=== PATIENT | female | born 1945 | race Caucasian/White ===

== ENCOUNTER 2017-04-28 21:27 | Emergency (ER) | payer MEDICARE ==
[2017-04-28 21:58] VITALS: O2SAT 100
--- NOTE | 2017-04-28 22:00 | ED.PDOC ---
History of Present Illness - General Chief Complaint: Headache Stated Complaint: headache,nausea,poor appetite,weakness,fever Time Seen by Provider: 04/28/17 21:51 Source: patient Exam Limitations: no limitations - History of Present Illness Initial Comments: Sera Osman 71 y/o female stated that she had been having non productive cough and flu like symptoms for the last one week with nasal congestion today does not have appetite and with dull frontal headache.Multiple ill contacts.No vomiting or diarrhea. Timing/Duration: other - see hpi Severity: moderate Improving Factors: nothing Worsening Factors: nothing Associated Symptoms: loss of appetite, other - seehpi Allergies/Adverse Reactions: Allergies Codeine Allergy (Verified 04/28/17 21:48) Hydrocodone Allergy (Verified 04/28/17 21:48) Penicillins Allergy (Verified 04/28/17 21:48) Sulfa Antibiotics Allergy (Verified 04/28/17 21:48) mycins Allergy (Uncoded 04/28/17 21:48) Home Medications: Ambulatory Orders Amitriptyline HCl [Elavil] 25 mg PO BEDTIME 04/28/17 Levothyroxine Sodium 50 mcg PO DAILY 04/28/17 Review of Systems - Review of Systems Constitutional: States: no symptoms reported EENTM: States: see HPI, nose congestion Respiratory: States: see HPI, cough Gastrointestinal/Abdominal: States: see HPI, nausea Genitourinary: States: no symptoms reported Musculoskeletal: States: no symptoms reported Skin: States: no symptoms reported Neurological: States: no symptoms reported Past Medical History (General) - Patient Medical History Hx Other PMH: Yes - hypothyroidism and sciatica Surgical History: other - hysterectomy - Social History Hx Physical Abuse: No Hx Emotional Abuse: No Hx Suspected Abuse: No - Activities of Daily Living Grooming Ability: Independent Eating (Feeding) Ability: Independent Toileting Ability: Independent - Female History Patient is a Female of Child Bearing Age (10 -59 yrs old): No Family Medical History - Family History Mother Family History: No Known Physical Exam - Physical Exam General Appearance: Alert, Comfortable, No apparent distress Eye Exam: bilateral normal Ears, Nose, Throat: hearing grossly normal - with hearing aids, normal ENT inspection, normal pharynx, nasal congestion Neck: full range of motion, supple Respiratory: lungs clear, normal breath sounds, no respiratory distress Cardiovascular/Chest: normal peripheral pulses, regular rate, rhythm, no murmur Peripheral Pulses: radial,right: 2+, radial,left: 2+ Gastrointestinal/Abdominal: normal bowel sounds, non tender, soft, no organomegaly Back Exam: no CVA tenderness, no vertebral tenderness Neurologic: alert, normal mood/affect, oriented x 3 Progress - Progress Progress: 04/28/17 22:25 Last Vital Signs Temp 97.8 F 04/28/17 21:35 Pulse 75 04/28/17 21:35 Resp 20 04/28/17 21:35 BP 147/94 04/28/17 21:35 Pulse Ox 100 04/28/17 21:35 Departure - Departure Clinical Impression: Flu-like symptoms Time of Disposition: 23:36 Disposition: Discharge to Home or Self Care Condition: Fair Departure Forms: ED Discharge - Pt. Copy, Patient Portal Self Enrollment Instructions: DI for Headache Referrals: SAUD WALTERS [Primary Care Provider] - 1-2 Weeks Home Medications: Ambulatory Orders Amitriptyline HCl [Elavil] 25 mg PO BEDTIME 04/28/17 Levothyroxine Sodium 50 mcg PO DAILY 04/28/17 Additional Instructions: RETURN TO EMERGENCY ROOM NEEDED;Tylenol 500mg every 6 hours as needed for pain;Need to drink extra fluids
[2017-04-28] MEDS ORDERED: ONDANSETRON ODT 8 MG TAB SL ONE (22:16)
--- NOTE | 2017-04-28 23:23 | RAD ---
Examination: XR CHEST 1 VIEW dated 04/28/2017 10:17 PM BILLING [employer]LE[employer] SPECIALIST History: cough Comparison: None Technique: Frontal view of the chest Findings: Mild linear atelectasis left lung base. Lungs otherwise clear. No pneumothorax or pleural effusion. The cardiomediastinal silhouette is within normal limits. Impression: Mild linear atelectasis of the left lung base. No acute findings. Electronically signed by: Bayron Pimentel MD 04/28/2017 11:21 PM [employer]ILLING [employer]LECTIONS SPECIALIST
[2017-04-28 23:53] VITALS: BP 132/87; TEMP 96.8
== END 2017-04-28 23:45 | disposition home or self-care (01) ==
LOC: ER 21:27
DX: R51 Headache (principal); R05 Cough; E03.9 Hypothyroidism, unspecified

== ENCOUNTER 2017-05-15 14:41 | Emergency (ER) | payer MEDICARE, OTHER ==
[2017-05-15 14:58] VITALS: TEMP 98.1
--- NOTE | 2017-05-15 15:08 | ED.PDOC ---
History of Present Illness - General Chief Complaint: Respiratory Problem Stated Complaint: cough Time Seen by Provider: 05/15/17 14:43 Source: patient Exam Limitations: no limitations - History of Present Illness Initial Comments: the patient is a 71-year-old female presenting to the emergency room secondary to cough with some congestion and hoarseness that has lasted for more than a month. The patient has been seen previously and diagnosed with the flu several weeks ago. Additionally she was seen by her primary care doctor last week who did a chest x-ray and did not find any definite pneumonia however place the patient on Keflex. The patient does have multiple drug allergies. The patient did recently move to a new house. She is not any fevers. No real sore throat. She has had some mild sinus pressure. She has had a runny nose. Timing/Duration: unsure Severity: mild Improving Factors: nothing Worsening Factors: nothing Associated Symptoms: chest pain - With cough, cough, loss of appetite, malaise Allergies/Adverse Reactions: Allergies Codeine Allergy (Verified 05/15/17 14:58) Hydrocodone Allergy (Verified 05/15/17 14:58) Penicillins Allergy (Verified 05/15/17 14:58) Sulfa Antibiotics Allergy (Verified 05/15/17 14:58) mycins Allergy (Uncoded 05/15/17 14:58) Home Medications: Ambulatory Orders Amitriptyline HCl [Elavil] 25 mg PO BEDTIME 04/28/17 Levothyroxine Sodium 50 mcg PO DAILY 04/28/17 predniSONE [Prednisone] 20 mg PO DAILY #5 tab 05/15/17 Review of Systems - Review of Systems Constitutional: States: malaise EENTM: States: nose congestion Respiratory: States: cough Cardiology: States: no symptoms reported Gastrointestinal/Abdominal: States: no symptoms reported Genitourinary: States: no symptoms reported Musculoskeletal: States: no symptoms reported Skin: States: no symptoms reported Neurological: States: no symptoms reported Endocrine: States: no symptoms reported All other Systems: No Change from Baseline Past Medical History (General) - Patient Medical History Hx Seizures: No Hx Stroke: No Hx Dementia: No Hx Asthma: No Hx of COPD: No Hx Cardiac Disorders: No Hx Congestive Heart Failure: No Hx Pacemaker: No Hx Hypertension: Yes Hx Thyroid Disease: Yes Hx Diabetes: No Hx Gastroesophageal Reflux: No Hx Renal Disease: No Hx Cancer: No Hx of HIV: No Hx Hepatitis C: No Hx MRSA: No Surgical History: Hysterectomy, other - Vaccination History Hx Tetanus, Diphtheria Vaccination: Yes Hx Influenza Vaccination: No Hx Pneumococcal Vaccination: No - Social History Hx Tobacco Use: No Hx Alcohol Use: No Hx Substance Use: No Hx Substance Use Treatment: No Hx Depression: No Hx Physical Abuse: No Hx Emotional Abuse: No Hx Suspected Abuse: No - Female History Patient is a Female of Child Bearing Age (10 -59 yrs old): No Family Medical History - Family History Mother Family History: No Known Physical Exam - Physical Exam General Appearance: Alert, Comfortable, No apparent distress Eye Exam: bilateral normal Ears, Nose, Throat: hearing grossly normal, nasal congestion - blue and boggy membranes Neck: full range of motion, supple Respiratory: lungs clear, normal breath sounds, no respiratory distress, no accessory muscle use - she is hoarse Cardiovascular/Chest: normal peripheral pulses, regular rate, rhythm, no edema Peripheral Pulses: radial,right: 2+, radial,left: 2+ Gastrointestinal/Abdominal: non tender, soft Rectal Exam: deferred Back Exam: normal inspection, no CVA tenderness Extremity: normal range of motion, non-tender, normal inspection, no pedal edema , normal capillary refill Neurologic: engineering and operations director II-XII nml as tested, alert, normal mood/affect, oriented x 3 Skin Exam: normal color Comments: Vital Signs - 24 hr 05/15/17 14:48 Temperature 98.1 F Pulse Rate [ 86 pulse ox] Respiratory 20 Rate Blood Pressure 99/77 [Left Arm] O2 Sat by Pulse 97 Oximetry Progress - Progress Progress: 05/15/17 15:08 the patient is a 71-year-old female presenting to the emergency room with what is most likely an extended allergy flare. The patient will be placed on a trial of prednisone 20 mg daily for 5 days. She needs to try and take this in the morning except for today. She needs to follow up with her primary care doctor towards the end of the week to discuss the effects of this. ER warnings are given for any significant worsening. Departure - Departure Clinical Impression: Seasonal allergies Qualifiers: Chronicity: acute Allergic rhinitis trigger: unspecified Qualified Code(s): J30.2 - Other seasonal allergic rhinitis Disposition: Discharge to Home or Self Care Condition: Fair Departure Forms: ED Discharge - Pt. Copy, Patient Portal Self Enrollment Instructions: Allergies, Respiratory (Alternative Therapy) Diet: regular diet Activity: increase activity as tolerated Referrals: SAUD WALTERS [Primary Care Provider] - 1-5 Days Prescriptions: predniSONE [Prednisone] 20 mg PO DAILY #5 tab Home Medications: Ambulatory Orders Amitriptyline HCl [Elavil] 25 mg PO BEDTIME 04/28/17 Levothyroxine Sodium 50 mcg PO DAILY 04/28/17 predniSONE [Prednisone] 20 mg PO DAILY #5 tab 05/15/17 Additional Instructions: the patient is a 71-year-old female presenting to the emergency room with what is most likely an extended allergy flare. The patient will be placed on a trial of prednisone 20 mg daily for 5 days. She needs to try and take this in the morning except for today. She needs to follow up with her primary care doctor towards the end of the week to discuss the effects of this. ER warnings are given for any significant worsening.
[2017-05-15 15:23] VITALS: BP 112/52; O2SAT 98
== END 2017-05-15 15:23 | disposition home or self-care (01) ==
LOC: ER 14:41
DX: J30.2 Other seasonal allergic rhinitis (principal); I10 Essential (primary) hypertension; E07.9 Disorder of thyroid, unspecified